=== PATIENT | male | born 1955 | race Caucasian/White ===

== ENCOUNTER 2017-11-23 14:22 | Inpatient (IN) ==
[~2017-11-23 14:22] MED LIST: Gadobutrol PF 15 MMOL/15 ML Vial (for RAD) IV.SIG ONE
--- NOTE | 2017-11-23 19:55 | ED ---
HPI General Chief complaint: Extremity Problem,Nontraumatic Stated complaint: dr sent/skin Time Seen by Provider: 11/23/17 19:45 Source: patient and family Mode of arrival: ambulatory Limitations: no limitations History of Present Illness HPI narrative: 62-year-old white male presents emergency department accompanied by his at the recommendation of Dr. Fisher his family physician through [facility]. He was advised to come to the ER so he can be evaluated by an orthopedic surgeon. Patient has had a complicated course of a right lower leg cellulitis and lymphedema. This started back in September of this year. He had been admitted for 11 days in [place]. He has been on multiple courses of antibiotics. Patient was seen in the office on Sunday and restarted on amoxicillin and Bactrim. His right lower extremity had become increasingly swollen, red particularly the posterior calf. Patient was sent for an ultrasound to rule out DVT or abscess. 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 Later in the day the cyst opened through the skin and started to drain. Dr. Fisher consult to Dr. Azar who verbally advised her to have the patient emergently seen by orthopedics. I have spoken with Dr. Fisher who stated that she has had made multiple attempts at getting him in to see an orthopedist this afternoon when she had gotten the information but was unsuccessful. She felt that there was no other way to have the patient evaluated but the sent him to the ER. The patient will be admitted and placed on IV antibiotics to circumvent a septic knee and have orthopedics consult. Patient here denies any fever chills. No nausea vomiting. No focal numbness, tingling or weakness. Patient does admit that the area behind his leg had gotten somewhat bigger and is now actually somewhat improved. Family is concerned that this was a similar presentation when his cellulitis had gotten out of control requiring IV antibiotics and admission. No exacerbating or alleviating factors. Complicated by Skaggs cyst versus loculated abscess. Pain is mild. Related Data Home Medications Medication Instructions Recorded Confirmed lisinopril 10 mg PO DAILY 11/23/17 11/23/17 metoprolol tartrate 100 mg PO DAILY 11/23/17 11/23/17 Previous Rx's Medication Instructions Recorded amoxicillin 500 mg PO TID #7 cap 11/28/17 hydrocodone-acetaminophen 1 tab PO Q4H PRN #18 tab 11/28/17 Allergies Allergy/AdvReac Type Severity Reaction Status Date / Time No Known Allergies Allergy Unverified 11/23/17 19:56 Review of Systems ROS Unobtainable All other systems reviewed negative except as stated in [facility] Surgical History Surgical History Hx of left knee surgery (Acute) Social History Social History Substance History: No History of Abuse Second Hand Smoke Exposure: No Smoking Status: Former smoker Tobacco Type: Cigarettes How Often Do You Have a Drink Containing Alcohol: Never Recent Travel in [facility] within the Last 8 Weeks: No Recent Out of Country Travel within the Last 8 Weeks: No Exam Narrative Exam Narrative: GENERAL: Well-developed, well-nourished in no apparent distress. Nontoxic appearing. HEAD: Normocephalic, atraumatic. EYES: Pupils equal round and reactive. Extraocular motions intact. No scleral icterus. No injection or drainage. ENT: Nose clear. Throat without erythema, tonsillar hypertrophy or exudate. Uvula midline. Airway patent. NECK: Trachea midline. Supple, nontender, moves head freely. No central bony tenderness or spasm. CARDIOVASCULAR: Regular rate and rhythm without murmurs, gallops, or rubs. RESPIRATORY: Clear to auscultation. Breath sounds equal bilaterally. No wheezes , rales, or rhonchi. GASTROINTESTINAL: Abdomen soft, non-tender, nondistended. No hepato-splenomegaly , or palpable masses. No guarding. EXTREMITIES: No clubbing, cyanosis. Examination of the right lower extremity reveals a thickened edema with erythema to the posterior calf down into the lower leg just above the ankle. There is a 8 x 8 cm soft area to the posterior calf with surrounding induration. There is a small central area which is open and draining a serosanguineous fluid. Patient reports this to be mildly tender. He has intact sensation with good distal pulses. Patient has no pain with palpation of the foot, ankle, knee or hip. He is able to ambulate freely. The skin is erythematous but not particularly warm. Skin does jillian. BACK: Nontender without deformity. No flank tenderness. NEUROLOGICAL: Awake, alert and oriented x 3 .Cranial nerves grossly intact. Motor and sensory grossly within normal limits. Normal speech. Course Hospital Course: The case has been discussed with Dr. Eldridge the floor health care doctor production zone leader. He has agreed to admit the patient today. He agrees with antibiotic coverage in consultation with orthopedics. We have discussed imaging of the knee. I have discussed the case with Lorena on-call for Dr. Penn. He has requested that we perform an MRI of his right knee, keep the patient n.p.o., and admit the patient and he will see the patient in consultation. He has discussed potentially tapping the need to see if this is a true communicating Skaggs cyst. Transition orders have been placed. Initial Documented Vital Signs Temperature 98.1 F 11/23/17 14:41 Pulse Rate 50 L 11/23/17 14:41 Respiratory Rate 16 11/23/17 14:41 Blood Pressure 178/79 H 11/23/17 14:41 Pulse Oximetry 95 11/23/17 14:41 Last Documented Vital Signs Temperature 97.7 F 11/28/17 16:00 Pulse Rate 79 11/28/17 16:00 Respiratory Rate 16 11/28/17 16:00 Blood Pressure 142/84 H 11/28/17 16:00 Pulse Oximetry 95 11/28/17 16:00 Medical Decision Making Differential Diagnosis Differential Diagnosis: Abscess, Skaggs's cyst, cellulitis, lymphedema, septic joint Lab Data Result diagrams: 11/26/17 04:20 11/28/17 03:15 Lab Results 11/23/17 11/23/17 11/23/17 Range/Units 21:00 21:00 21:00 WBC 6.0 (4.0-11.0) th/mm3 RBC 5.25 (4.50-5.90) mil/mm3 Hgb 15.2 (13.0-17.0) gm/dL Hct 45.0 (39.0-51.0) % MCV 85.6 (80.0-100.0) fL MCH 29.0 (27.0-34.0) pg MCHC 33.8 (32.0-36.0) % RDW 13.4 (11.6-17.2) % Plt Count 261 (150-450) th/mm3 MPV 8.2 (7.0-11.0) fL Neut % (Auto) 56.2 (16.0-70.0) % Lymph % (Auto) 28.8 (9.0-44.0) % Lawrence % (Auto) 8.1 H (0.0-8.0) % Eos % (Auto) 5.6 H (0.0-4.0) % Baso % (Auto) 1.3 (0.0-2.0) % Neut # (Auto) 3.4 (1.8-7.7) th/mm3 Lymph # (Auto) 1.7 (1.0-4.8) th/mm3 Lawrence # (Auto) 0.5 (0.0-0.9) th/mm3 Eos # (Auto) 0.3 (0.0-0.4) th/mm3 Baso # (Auto) 0.1 (0.0-0.2) th/mm3 WBC Differential . Differential Comment Auto diff final PT (9.8-11.6) sec INR Ratio APTT (24.3-30.1) sec Sodium 138 (136-145) meq/L Potassium 4.3 (3.5-5.1) meq/L Chloride 103 (98-107) meq/L Carbon Dioxide 25.4 (21.0-32.0) meq/L Anion Gap 10 (5-15) meq/L BUN 13 (7-18) mg/dL Creatinine 1.13 (0.60-1.30) mg/dL Estimated GFR 65 L (>89) mL/min Random Glucose 81 (74-106) mg/dL Lactic Acid 1.7 (0.4-2.0) mmol/L Calcium 9.7 (8.5-10.1) mg/dL Total Bilirubin 0.5 (0.2-1.0) mg/dL AST 15 (15-37) U/L ALT 14 (12-78) U/L Alkaline Phosphatase 86 (45-117) U/L Total Protein 8.2 (6.4-8.2) g/dL Albumin 3.9 (3.4-5.0) g/dL Vit D 1,25-Dihydroxy (18-64) pg/mL Vancomycin Trough (5.0-10.0) mcg/mL 11/24/17 11/24/17 11/25/17 Range/Units 07:22 07:22 05:38 WBC 6.4 6.5 (4.0-11.0) th/mm3 RBC 5.33 5.18 (4.50-5.90) mil/mm3 Hgb 15.5 14.9 (13.0-17.0) gm/dL Hct 45.8 45.0 (39.0-51.0) % MCV 86.0 86.9 (80.0-100.0) fL MCH 29.1 28.7 (27.0-34.0) pg MCHC 33.8 33.1 (32.0-36.0) % RDW 13.4 13.6 (11.6-17.2) % Plt Count 258 218 (150-450) th/mm3 MPV 8.6 8.5 (7.0-11.0) fL Neut % (Auto) 64.3 62.2 (16.0-70.0) % Lymph % (Auto) 21.5 20.0 (9.0-44.0) % Lawrence % (Auto) 7.5 10.6 H (0.0-8.0) % Eos % (Auto) 5.4 H 5.8 H (0.0-4.0) % Baso % (Auto) 1.3 1.4 (0.0-2.0) % Neut # (Auto) 4.1 4.0 (1.8-7.7) th/mm3 Lymph # (Auto) 1.4 1.3 (1.0-4.8) th/mm3 Lawrence # (Auto) 0.5 0.7 (0.0-0.9) th/mm3 Eos # (Auto) 0.3 0.4 (0.0-0.4) th/mm3 Baso # (Auto) 0.1 0.1 (0.0-0.2) th/mm3 WBC Differential . . Differential Comment Auto diff final Auto diff final PT (9.8-11.6) sec INR Ratio APTT (24.3-30.1) sec Sodium 140 (136-145) meq/L Potassium 4.1 (3.5-5.1) meq/L Chloride 102 (98-107) meq/L Carbon Dioxide 28.3 (21.0-32.0) meq/L Anion Gap 10 (5-15) meq/L BUN 12 (7-18) mg/dL Creatinine 1.05 (0.60-1.30) mg/dL Estimated GFR 71 L (>89) mL/min Random Glucose 90 (74-106) mg/dL Lactic Acid (0.4-2.0) mmol/L Calcium 9.7 (8.5-10.1) mg/dL Total Bilirubin (0.2-1.0) mg/dL AST (15-37) U/L ALT (12-78) U/L Alkaline Phosphatase (45-117) U/L Total Protein (6.4-8.2) g/dL Albumin (3.4-5.0) g/dL Vit D 1,25-Dihydroxy (18-64) pg/mL Vancomycin Trough (5.0-10.0) mcg/mL 11/25/17 11/25/17 11/26/17 Range/Units 05:38 23:20 04:20 WBC (4.0-11.0) th/mm3 RBC (4.50-5.90) mil/mm3 Hgb (13.0-17.0) gm/dL Hct (39.0-51.0) % MCV (80.0-100.0) fL MCH (27.0-34.0) pg MCHC (32.0-36.0) % RDW (11.6-17.2) % Plt Count (150-450) th/mm3 MPV (7.0-11.0) fL Neut % (Auto) (16.0-70.0) % Lymph % (Auto) (9.0-44.0) % Lawrence % (Auto) (0.0-8.0) % Eos % (Auto) (0.0-4.0) % Baso % (Auto) (0.0-2.0) % Neut # (Auto) (1.8-7.7) th/mm3 Lymph # (Auto) (1.0-4.8) th/mm3 Lawrence # (Auto) (0.0-0.9) th/mm3 Eos # (Auto) (0.0-0.4) th/mm3 Baso # (Auto) (0.0-0.2) th/mm3 WBC Differential Differential Comment PT 10.9 (9.8-11.6) sec INR 1.1 Ratio APTT 25.8 (24.3-30.1) sec Sodium 141 (136-145) meq/L Potassium 4.4 (3.5-5.1) meq/L Chloride 104 (98-107) meq/L Carbon Dioxide 30.3 (21.0-32.0) meq/L Anion Gap 7 (5-15) meq/L BUN 13 (7-18) mg/dL Creatinine 1.11 (0.60-1.30) mg/dL Estimated GFR 67 L (>89) mL/min Random Glucose 94 (74-106) mg/dL Lactic Acid (0.4-2.0) mmol/L Calcium 9.4 (8.5-10.1) mg/dL Total Bilirubin 0.5 (0.2-1.0) mg/dL AST 14 L (15-37) U/L ALT 12 (12-78) U/L Alkaline Phosphatase 73 (45-117) U/L Total Protein 7.2 D (6.4-8.2) g/dL Albumin 3.5 (3.4-5.0) g/dL Vit D 1,25-Dihydroxy 62 (18-64) pg/mL Vancomycin Trough (5.0-10.0) mcg/mL 11/26/17 11/26/17 11/26/17 Range/Units 04:20 04:20 21:51 WBC 14.4 H D (4.0-11.0) th/mm3 RBC 4.78 (4.50-5.90) mil/mm3 Hgb 13.8 (13.0-17.0) gm/dL Hct 40.7 (39.0-51.0) % MCV 85.1 (80.0-100.0) fL MCH 29.0 (27.0-34.0) pg MCHC 34.0 (32.0-36.0) % RDW 13.3 (11.6-17.2) % Plt Count 296 D (150-450) th/mm3 MPV 8.3 (7.0-11.0) fL Neut % (Auto) 88.7 H (16.0-70.0) % Lymph % (Auto) 5.9 L (9.0-44.0) % Lawrence % (Auto) 5.2 (0.0-8.0) % Eos % (Auto) 0.0 (0.0-4.0) % Baso % (Auto) 0.2 (0.0-2.0) % Neut # (Auto) 12.8 H (1.8-7.7) th/mm3 Lymph # (Auto) 0.9 L (1.0-4.8) th/mm3 Lawrence # (Auto) 0.8 (0.0-0.9) th/mm3 Eos # (Auto) 0.0 (0.0-0.4) th/mm3 Baso # (Auto) 0.0 (0.0-0.2) th/mm3 WBC Differential . Differential Comment Auto diff final PT (9.8-11.6) sec INR Ratio APTT (24.3-30.1) sec Sodium 139 (136-145) meq/L Potassium 4.4 (3.5-5.1) meq/L Chloride 102 (98-107) meq/L Carbon Dioxide 30.9 (21.0-32.0) meq/L Anion Gap 6 (5-15) meq/L BUN 13 (7-18) mg/dL Creatinine 0.94 (0.60-1.30) mg/dL Estimated GFR 81 L (>89) mL/min Random Glucose 134 H (74-106) mg/dL Lactic Acid (0.4-2.0) mmol/L Calcium 9.1 (8.5-10.1) mg/dL Total Bilirubin (0.2-1.0) mg/dL AST (15-37) U/L ALT (12-78) U/L Alkaline Phosphatase (45-117) U/L Total Protein (6.4-8.2) g/dL Albumin (3.4-5.0) g/dL Vit D 1,25-Dihydroxy (18-64) pg/mL Vancomycin Trough 18.7 H (5.0-10.0) mcg/mL 11/28/17 Range/Units 03:15 WBC (4.0-11.0) th/mm3 RBC (4.50-5.90) mil/mm3 Hgb (13.0-17.0) gm/dL Hct (39.0-51.0) % MCV (80.0-100.0) fL MCH (27.0-34.0) pg MCHC (32.0-36.0) % RDW (11.6-17.2) % Plt Count (150-450) th/mm3 MPV (7.0-11.0) fL Neut % (Auto) (16.0-70.0) % Lymph % (Auto) (9.0-44.0) % Lawrence % (Auto) (0.0-8.0) % Eos % (Auto) (0.0-4.0) % Baso % (Auto) (0.0-2.0) % Neut # (Auto) (1.8-7.7) th/mm3 Lymph # (Auto) (1.0-4.8) th/mm3 Lawrence # (Auto) (0.0-0.9) th/mm3 Eos # (Auto) (0.0-0.4) th/mm3 Baso # (Auto) (0.0-0.2) th/mm3 WBC Differential Differential Comment PT (9.8-11.6) sec INR Ratio APTT (24.3-30.1) sec Sodium (136-145) meq/L Potassium (3.5-5.1) meq/L Chloride (98-107) meq/L Carbon Dioxide (21.0-32.0) meq/L Anion Gap (5-15) meq/L BUN (7-18) mg/dL Creatinine 0.86 (0.60-1.30) mg/dL Estimated GFR Greater than 89 (>89) mL/min Random Glucose (74-106) mg/dL Lactic Acid (0.4-2.0) mmol/L Calcium (8.5-10.1) mg/dL Total Bilirubin (0.2-1.0) mg/dL AST (15-37) U/L ALT (12-78) U/L Alkaline Phosphatase (45-117) U/L Total Protein (6.4-8.2) g/dL Albumin (3.4-5.0) g/dL Vit D 1,25-Dihydroxy (18-64) pg/mL Vancomycin Trough (5.0-10.0) mcg/mL Imaging Data Radiologist's impression: Chest X-Ray 11/23/17 00:00 CONCLUSION: No acute cardiopulmonary disease identified. Knee MRI 11/23/17 21:17 CONCLUSION: 1. Large crescent-shaped fluid collection in the posterior superficial soft tissues with surrounding enhancement indicating infection and abscess in the proper clinical setting. No evidence of osteomyelitis. 2. Medial meniscus tear with displaced fragment in the intercondylar notch. 3. 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 4. Small joint effusion and small Skaggs cyst. Discharge Plan Discharge Disposition Patient Disposition: 01 Discharge Home Discharge Condition Condition: Stable Discharge Order Discharge Orders: Discharge Order (Routine); Ordered 11/28/17 Ordered By: Felix Piedra Discharge Details Anticipated Discharge Date: 11/28/17 Discharge Comment: dc pt home today with hhc/wound care after seen by Infectious disease. Physicians Team ED Provider: Azalia Roberts ED Midlevel Provider: Dontae Mustafa Primary Care Provider: Mirta Fisher Attending Provider: Salo Eldridge Other Providers: Fly Penn ; Nathalie Hi ; [facility] ; Chip Ferreira Status ED Status: Left Department Discharge Information Discharge Date/Time: 11/24/17 00:30
[2017-11-23] MEDS ORDERED: Sod Chloride 0.9% Inj 1,000 ML IV.SIG ONE (19:56)
[2017-11-23] MEDS ORDERED: Vancomycin Inj 1 GM/200 ML PIGGYBACK IV.SIG SCH (20:00)
[2017-11-23 21:34] LABS: Baso # (Auto) 0.1 th/mm3 (0.0-0.2); Baso % (Auto) 1.3 % (0.0-2.0); Eos # (Auto) 0.3 th/mm3 (0.0-0.4); Eos % (Auto) 5.6 % (0.0-4.0); Hemoglobin 15.2 gm/dL (13.0-17.0); Lymph # (Auto) 1.7 th/mm3 (1.0-4.8); Lymph % (Auto) 28.8 % (9.0-44.0); Mean Corpuscular HGB Conc 33.8 % (32.0-36.0); Mean Corpuscular Volume 85.6 fL (80.0-100.0); Mean Platelet Volume 8.2 fL (7.0-11.0); Mono # (Auto) 0.5 th/mm3 (0.0-0.9); Mono % (Auto) 8.1 % (0.0-8.0); Neut # (Auto) 3.4 th/mm3 (1.8-7.7); Neut % (Auto) 56.2 % (16.0-70.0); Platelet Count 261 th/mm3 (150-450); Red Blood Count 5.25 mil/mm3 (4.50-5.90); Red Cell Distribution Width 13.4 % (11.6-17.2)
[2017-11-23 22:01] LABS: Albumin 3.9 g/dL (3.4-5.0); Anion Gap 10 meq/L (5-15); Aspartate Aminotransferase 15 U/L (15-37); Blood Urea Nitrogen 13 mg/dL (7-18); Calcium 9.7 mg/dL (8.5-10.1); Carbon Dioxide 25.4 meq/L (21.0-32.0); Chloride 103 meq/L (98-107); Glomerular Filtration Rate 65 mL/min (>89); Glucose,Random 81 mg/dL (74-106); Potassium 4.3 meq/L (3.5-5.1); Sodium 138 meq/L (136-145)
[2017-11-23 22:03] LABS: Alanine Aminotransferase 14 U/L (12-78); Alkaline Phosphatase 86 U/L (45-117); Total Protein 8.2 g/dL (6.4-8.2)
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
[2017-11-23] MEDS ORDERED: Temazepam 15 MG Capsule PO PRN (22:47)
[2017-11-23] MEDS ORDERED: HYDROmorphone PF Inj 2 MG/ML Vial IV.PUSH PRN (22:55)
--- NOTE | 2017-11-23 23:25 | MR ---
EXAM DATE: 11/23/2017 11:16 PM EDT AGE/SEX: 62 years / Male INDICATIONS: Abscess. Pain and swelling from bite from about three months agol CLINICAL DATA: This is the patient's initial encounter. Patient reports that signs and symptoms have been present for 3 months and indicates a pain score of 8/10. MEDICAL/SURGICAL HISTORY: Hypertension. . Left knee sx. COMPARISON: No prior exams available for comparison. TECHNIQUE: Multiplanar, multisequence MRI examination was performed with contrast and after the intr avenous administration of 14 ml Gadavist (gadobutrol) contrast as a single exam dose. FINDINGS: Cruciate Ligaments: ACL and PCL are intact. Menisci: Moderate-sized horizontal tear of the posterior horn and body of the medial meniscus. Atten uation of the medial meniscus body along with a fragment displaced into the intercondylar notch. Late ral meniscus is intact. Collateral Ligaments: MCL and LCL complexes are intact. Marrow/Cartilage: Small tricompartmental osteophytes. Mild diffuse articular cartilage thinning and heterogeneity at the weightbearing surfaces of the medial compartment. Mild diffuse patellar articula r cartilage thinning. Other: Thick walled peripherally enhancing fluid collection in the posterior superficial soft tissue s with surrounding edema and enhancement. The collection measures 11.3 x 1.5 cm in axial dimensions a nd approximately 11 cm in craniocaudal dimension. Finding suggest abscess in the proper clinical sett ing. Small joint effusion. Extensor mechanism intact. Small Skaggs cyst. CONCLUSION: 1. Large crescent-shaped fluid collection in the posterior superficial soft tissues with surrounding enhancement indicating infection and abscess in the proper clinical setting. No evidence of osteomye litis. 2. Medial meniscus tear with displaced fragment in the intercondylar notch. 3. Osteoarthritic findings with mild medial compartment and patellofemoral compartment chondromalaci a. 4. Small joint effusion and small Skaggs cyst. Electronically signed by: Anand Bañuelos MD 11/23/2017 11:24 PM EDT
--- NOTE | 2017-11-23 23:47 | XR ---
EXAM DATE: 11/23/2017 11:40 PM EDT AGE/SEX: 62 years / Male INDICATIONS: . Short of breath and productive cough. CLINICAL DATA: This is the patient's initial encounter. Patient reports that signs and symptoms have been present for 1 day and indicates a pain score of 0/10. MEDICAL/SURGICAL HISTORY: Hypertension. None. COMPARISON: No prior exams available for comparison. FINDINGS: PA and lateral views of the chest. Multiple old healed right-sided rib fractures. The lung s are clear. Cardiomediastinal silhouette within normal limits. No evidence of pleural effusion or pneumothorax. CONCLUSION: No acute cardiopulmonary disease identified. Electronically signed by: Anand Bañuelos MD 11/23/2017 11:45 PM EDT
[2017-11-24] MEDS: Potassium Chloride Inj 10 MEQ in Sodium Chloride 0.45 % Inj 1,000 ML IV.CONT SCH ×2 (01:35→16:14)
[2017-11-24] MEDS ORDERED: Vancomycin Inj 1,000 MG in Sodium Chlor 0.9% Inj 250 ML IV.SIG SCH (08:00)
[2017-11-24] MEDS ORDERED: Vancomycin Inj 1 GM/200 ML PIGGYBACK IV.SIG SCH (08:00)
[2017-11-24] MEDS: Senna/Docusate Sodium 8.6/50 MG Tablet PO SCH ×2 (09:00→21:43)
[2017-11-24 09:03] LABS: Baso # (Auto) 0.1 th/mm3 (0.0-0.2); Baso % (Auto) 1.3 % (0.0-2.0); Eos # (Auto) 0.3 th/mm3 (0.0-0.4); Eos % (Auto) 5.4 % (0.0-4.0); Hematocrit 45.8 % (39.0-51.0); Hemoglobin 15.5 gm/dL (13.0-17.0); Lymph # (Auto) 1.4 th/mm3 (1.0-4.8); Lymph % (Auto) 21.5 % (9.0-44.0); Mean Corpuscular HGB Conc 33.8 % (32.0-36.0); Mean Corpuscular Hemoglobin 29.1 pg (27.0-34.0); Mean Platelet Volume 8.6 fL (7.0-11.0); Mono # (Auto) 0.5 th/mm3 (0.0-0.9); Mono % (Auto) 7.5 % (0.0-8.0); Neut # (Auto) 4.1 th/mm3 (1.8-7.7); Neut % (Auto) 64.3 % (16.0-70.0); Platelet Count 258 th/mm3 (150-450); Red Blood Count 5.33 mil/mm3 (4.50-5.90); Red Cell Distribution Width 13.4 % (11.6-17.2); White Blood Count 6.4 th/mm3 (4.0-11.0)
--- NOTE | 2017-11-24 09:12 | MB ---
cc: Fly Penn MD DATE: 11/24/2017 REASON FOR CONSULTATION: Right posterior calf abscess. CONSULTING PHYSICIAN: Dr. Salo Eldridge. HISTORY OF PRESENT ILLNESS: Hai is a 62-year-old male who initially began having problems with his right calf approximately 08/18/2017. He states that he was bit by an insect while in [place]. He developed an infection. He was admitted at [facility] in [place] for 11 days for antibiotic treatment. He subsequently has returned back to [place]. He has developed drainage over the past 3 days. He had significant swelling and redness of the posterior calf. There was fluctuance and tightness noted. He has had purulent drainage for 3 days. He continues to have some pain. The pain has improved since the drainage started. Subsequent MRI revealed an abscess in the posterior calf. He also has meniscal tear and Skaggs's cyst on MRI. The patient was admitted for treatment of this injury. PAST MEDICAL HISTORY: Hypertension, cardiomegaly, and history of ventral hernia. PAST SURGICAL HISTORY: Left knee ligamentous repair. ALLERGIES: NO KNOWN DRUG ALLERGIES. MEDICATIONS: 1. Metoprolol. 2. Lisinopril. SOCIAL HISTORY: The patient is . He is originally from [place]. He quit smoking 4 years ago. He denies alcohol use. He denies drug use. FAMILY HISTORY: Positive for diabetes in his mother and cancer in his father. REVIEW OF SYSTEMS: The patient denies fevers, chills, weight loss, headache, visual changes, hearing loss, chest pain, palpitations, shortness of breath, nausea, vomiting, urinary changes, diarrhea, bowel changes, neck pain, back pain, skin rashes, weakness, numbness of extremities, anxiety or depression. He complains of right knee pain and swelling. LABORATORY DATA: The patient has a white blood cell count of 6.0, platelet count of 261, hematocrit of 45. Potassium is 4.3. IMAGING STUDIES: MRI of right leg was reviewed. The patient has a fluid collection along the posterior soft tissues of the calf. No fractures are noted. PHYSICAL EXAMINATION: GENERAL: The patient is a well-developed, well-nourished, 62-year-old male. He is moderately overweight. He is in no acute distress. VITAL SIGNS: Temperature is 97.6, pulse 51, respirations 20, blood pressure 153/83, O2 saturation 96% on room air. HEENT: Head: The patient is normocephalic. Pupils are equal. NECK: Soft, nontender. The trachea is in the midline. ABDOMEN: Soft, nontender, and nondistended. EXTREMITIES: Examination of the bilateral upper extremities reveals no pain with shoulder, elbow or wrist motion. He has intact sensation in all fingers and has good cap refill in all fingers. Skin is intact. Radial pulse is palpable. Examination of the left leg reveals no significant pain with hip, knee or ankle motion. Skin is intact. Dorsalis pedis pulse is palpable. Examination of the right leg reveals minimal pain with gentle hip, knee or ankle motion. He has swelling and erythema of the right calf. There is an approximately 8 mm draining wound on the posterior superior calf. There is purulent drainage present. There appears to be some fluctuance around this region. He has intact sensation to the right foot. Dorsalis pedis pulse is palpable. IMPRESSION: Right calf abscess. PLAN: Treatment options were discussed with the patient. At this point, he has had improvement since the wound started draining. He has been on antibiotics. MRI still reveals a moderate fluid collection present. He would likely benefit from surgical irrigation and debridement of this wound. I will plan on surgery tomorrow unless he has had significant clinical improvement. Given that he has been dealing with this infection for approximately 3 months, surgery will likely be necessary. The patient is in agreement with this plan. All questions were answered. A mid-level provider in my office, nurse practitioner or PA, may see this patient on a follow-up basis and continue to implement the objective of this plan including: Starting or adjusting medications, injections of muscle, tendon, bursa or joints, cast application, orthotic or brace application, physical therapy, further radiographic studies including x-ray, MRI, CT, ultrasounds or bone scan, vascular studies, neurologic studies, or other specialist consultations, and proceeding with surgical management as appropriate. MD JORGE Bonilla/RIGO , 08:53 AM , 09:11 AM
[2017-11-24 09:27] LABS: Calcium 9.7 mg/dL (8.5-10.1); Carbon Dioxide 28.3 meq/L (21.0-32.0); Potassium 4.1 meq/L (3.5-5.1)
--- NOTE | 2017-11-24 15:14 | P.PNIM ---
Subjective Interval history: No new complaints Pain is fairly well controlled Afebrile Physical Exam Vital signs: Vital Signs 11/24/17 00:00 11/24/17 04:00 11/24/17 08:00 Temperature 97.1 F L 97.1 F L 97.6 F Pulse Rate 54 L 47 L 51 L Respiratory Rate 18 18 20 Blood Pressure 147/89 H 164/94 H 153/83 H Pulse Oximetry 96 97 96 11/24/17 12:00 Temperature 97.6 F Pulse Rate 50 L Respiratory Rate 20 Blood Pressure 172/89 H Pulse Oximetry 97 Intake & Output 11/23/17 11/24/17 11/24/17 18:59 06:59 18:59 Intake Total 250 / 250 Balance 250 / 250 Weight 136.078 kg 135.6 kg Intake: IV 250 / 250 Vancomycin Inj 1,000 MG In NS 250 / 250 Inj 250 ML @ 250 mls/hr IV.SIG Q12H ERON Rx#:[id number] Other: # Voids 1 Weight On Admission 135.6 kg Narrative: GENERAL: NAD, AAOx3 CARDIO: Regular RESP: CTA bilaterally. No accessory muscle use. ABD: +BS, soft, non-tender, nondistended. EXT: Swelling and erythema of the right calf with approximately an 8 mm draining wound on the posterior superior calf. There is purulent drainage noted and some fluctuance in the area of the right calf wound. Results - Labs CBC & Chem 7: 11/25/17 05:38 11/25/17 05:38 Laboratory Results - last 24 hr 11/23/17 11/23/17 11/23/17 21:00 21:00 21:00 WBC 6.0 RBC 5.25 Hgb 15.2 Hct 45.0 MCV 85.6 MCH 29.0 MCHC 33.8 RDW 13.4 Plt Count 261 MPV 8.2 Neut % (Auto) 56.2 Lymph % (Auto) 28.8 [place] % (Auto) 8.1 H Eos % (Auto) 5.6 H Baso % (Auto) 1.3 Neut # (Auto) 3.4 Lymph # (Auto) 1.7 [place] # (Auto) 0.5 Eos # (Auto) 0.3 Baso # (Auto) 0.1 WBC Differential . Differential Comment Auto diff final Sodium 138 Potassium 4.3 Chloride 103 Carbon Dioxide 25.4 Anion Gap 10 BUN 13 Creatinine 1.13 Estimated GFR 65 L Random Glucose 81 Lactic Acid 1.7 Calcium 9.7 Total Bilirubin 0.5 AST 15 ALT 14 Alkaline Phosphatase 86 Total Protein 8.2 Albumin 3.9 11/24/17 11/24/17 07:22 07:22 WBC 6.4 RBC 5.33 Hgb 15.5 Hct 45.8 MCV 86.0 MCH 29.1 MCHC 33.8 RDW 13.4 Plt Count 258 MPV 8.6 Neut % (Auto) 64.3 Lymph % (Auto) 21.5 [place] % (Auto) 7.5 Eos % (Auto) 5.4 H Baso % (Auto) 1.3 Neut # (Auto) 4.1 Lymph # (Auto) 1.4 [place] # (Auto) 0.5 Eos # (Auto) 0.3 Baso # (Auto) 0.1 WBC Differential . Differential Comment Auto diff final Sodium 140 Potassium 4.1 Chloride 102 Carbon Dioxide 28.3 Anion Gap 10 BUN 12 Creatinine 1.05 Estimated GFR 71 L Random Glucose 90 Lactic Acid Calcium 9.7 Total Bilirubin AST ALT Alkaline Phosphatase Total Protein Albumin Microbiology 11/23/17 22:58 Blood - Peripheral Aerobic Blood Culture - Preliminary No growth in 1 day 11/23/17 22:58 Blood - Peripheral Anaerobic Blood Culture - Preliminary No growth in 1 day 11/23/17 23:14 Blood - Peripheral Aerobic Blood Culture - Preliminary No growth in 1 day 11/23/17 23:14 Blood - Peripheral Anaerobic Blood Culture - Preliminary No growth in 1 day 11/23/17 23:44 Wound - Leg Gram Stain - Final - Imaging Impressions Chest X-Ray 11/23/17 00:00 CONCLUSION: No acute cardiopulmonary disease identified. Knee MRI 11/23/17 21:17 CONCLUSION: 1. Large crescent-shaped fluid collection in the posterior superficial soft tissues with surrounding enhancement indicating infection and abscess in the proper clinical setting. No evidence of osteomyelitis. 2. Medial meniscus tear with displaced fragment in the intercondylar notch. 3. 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 4. Small joint effusion and small Skaggs cyst. Assessment and Plan - Assessment (1) Cellulitis Code(s): L03.90 - Cellulitis, unspecified Status: Acute Plan: Right calf cellulitis and abscess - Patient is a 62 y/o male with hypertension who was sent to the ED for evaluation of ongoing right lower extremity cellulitis which apparently began in August 2017. Pt reports that he was bit by an insect behind his right knee. Patient was previously admitted in [place], [place] for 11 days and treated with multiple antibiotics. Pt reports that he was then discharged on amoxicillin. Pt then drove back to [place]. - He reported that his right calf remained swollen and this had increased swelling at his right calf for the last week. - Patient was seen at Dr. Fisher's office the Sunday prior to admission and started on oral amoxicillin and Bactrim. However, patient failed to improve and had worsening erythema of his right lower extremity particular at the posterior aspect. Patient underwent ultrasound (outpatient, 11/21/17) showing a 15 cm septated Skaggs's cyst. Patient reports that the cyst open spontaneously and drained a large amount of dark, blood tinged fluid. - Knee MRI (11/23/17) 1. Large crescent-shaped fluid collection in the posterior superficial soft tissues with surrounding enhancement indicating infection and abscess in the proper clinical setting. No evidence of osteomyelitis. 2. Medial meniscus tear with displaced fragment in the intercondylar notch. 3. 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 4. Small joint effusion and small Skaggs cyst. - Appreciate consult from orthopedic surgery - Pt planned for surgical intervention on 11/25/17 - Blood cultures (11/23) with NGTD - Wound culture (11/23) is pending - Pain control PRN - Pt was started on Vancomycin at admission and this is being continued with pharmacy to dose. - SCD LLE for DVT prophylaxis - Supportive care - Attending Attestation Patient examined. Assessment and plan formulated with Nirmala Lomeli PA-C. I agree with the above. (1) Cellulitis Qualifiers: Site of cellulitis of extremity: lower extremity Laterality: right
[2017-11-24] MEDS ORDERED: Vancomycin Consult Pharmacy 1 EACH OTHER SCH (17:00)
[2017-11-24] MEDS: Vancomycin Inj 2,000 MG in Sodium Chlor 0.9% Inj 500 ML IV.SIG SCH (21:43)
--- NOTE | 2017-11-25 06:57 | P.PNOP ---
Subjective Interval history: Hai is awake and alert. Continues to have significant drainage from his right calf. Physical Exam Vital signs: Vital Signs 11/24/17 08:00 11/24/17 12:00 11/24/17 16:00 Temperature 97.6 F 97.6 F 97.9 F Pulse Rate 51 L 50 L 54 L Respiratory Rate 20 20 20 Blood Pressure 153/83 H 172/89 H 168/82 H Pulse Oximetry 96 97 97 11/24/17 20:00 11/25/17 00:00 11/25/17 04:00 Temperature 98.6 F 98.3 F 97.6 F Pulse Rate 57 L 52 L 59 L Respiratory Rate 20 18 18 Blood Pressure 151/73 H 131/72 145/76 H Pulse Oximetry 93 L 97 97 Intake & Output 11/24/17 11/24/17 11/25/17 06:59 18:59 06:59 Intake Total 2975 / 2975 720 / 720 Balance 2975 / 2975 720 / 720 Weight 135.6 kg 135.1 kg Intake: IV 2255 / 2255 KCl Inj 10 MEQ In 1/ Normal 2004 / 2004 Saline Inj 1,000 ML @ 84 mls/hr IV.CONT .[id number] ERON Rx#: [id number] Vancomycin Inj 1,000 MG In NS 250 / 250 Inj 250 ML @ 250 mls/hr IV.SIG Q12H ERON Rx#:[id number] Oral 720 / 720 720 / 720 Other: # Voids 1 6 2 # Bowel Movements 1 Weight On Admission 135.6 kg Narrative: Examination of right calf reveals a 6 cm x 6 mm open wound. There is purulent drainage present. There appears to be fluctuance around the superficial superior calf region. Calf is soft and nontender. He has no pain with the range of motion. No joint effusion is palpable. Results - Labs CBC & Chem 7: 11/24/17 07:22 11/24/17 07:22 Laboratory Results - last 24 hr 11/24/17 11/24/17 07:22 07:22 WBC 6.4 RBC 5.33 Hgb 15.5 Hct 45.8 MCV 86.0 MCH 29.1 MCHC 33.8 RDW 13.4 Plt Count 258 MPV 8.6 Neut % (Auto) 64.3 Lymph % (Auto) 21.5 [place] % (Auto) 7.5 Eos % (Auto) 5.4 H Baso % (Auto) 1.3 Neut # (Auto) 4.1 Lymph # (Auto) 1.4 [place] # (Auto) 0.5 Eos # (Auto) 0.3 Baso # (Auto) 0.1 WBC Differential . Differential Comment Auto diff final Sodium 140 Potassium 4.1 Chloride 102 Carbon Dioxide 28.3 Anion Gap 10 BUN 12 Creatinine 1.05 Estimated GFR 71 L Random Glucose 90 Calcium 9.7 Microbiology 11/23/17 22:58 Blood - Peripheral Aerobic Blood Culture - Preliminary No growth in 1 day 11/23/17 22:58 Blood - Peripheral Anaerobic Blood Culture - Preliminary No growth in 1 day 11/23/17 23:14 Blood - Peripheral Aerobic Blood Culture - Preliminary No growth in 1 day 11/23/17 23:14 Blood - Peripheral Anaerobic Blood Culture - Preliminary No growth in 1 day 11/23/17 23:44 Wound - Leg Gram Stain - Final Assessment and Plan - Assessment and Plan Hai continues to have purulent drainage from a right calf abscess. At this point I would recommend surgical irrigation debridement of the abscess. Risk and benefits of surgery were discussed and consent was given. I will plan on surgery today. All questions were answered.
[2017-11-25 07:21] LABS: Baso # (Auto) 0.1 th/mm3 (0.0-0.2); Baso % (Auto) 1.4 % (0.0-2.0); Eos # (Auto) 0.4 th/mm3 (0.0-0.4); Eos % (Auto) 5.8 % (0.0-4.0); Hemoglobin 14.9 gm/dL (13.0-17.0); Lymph # (Auto) 1.3 th/mm3 (1.0-4.8); Mean Corpuscular HGB Conc 33.1 % (32.0-36.0); Mean Corpuscular Hemoglobin 28.7 pg (27.0-34.0); Mean Corpuscular Volume 86.9 fL (80.0-100.0); Mean Platelet Volume 8.5 fL (7.0-11.0); Mono # (Auto) 0.7 th/mm3 (0.0-0.9); Mono % (Auto) 10.6 % (0.0-8.0); Neut % (Auto) 62.2 % (16.0-70.0); Platelet Count 218 th/mm3 (150-450); Red Blood Count 5.18 mil/mm3 (4.50-5.90); Red Cell Distribution Width 13.6 % (11.6-17.2); White Blood Count 6.5 th/mm3 (4.0-11.0)
[2017-11-25 07:34] LABS: Albumin 3.5 g/dL (3.4-5.0); Anion Gap 7 meq/L (5-15); Aspartate Aminotransferase 14 U/L (15-37); Blood Urea Nitrogen 13 mg/dL (7-18); Calcium 9.4 mg/dL (8.5-10.1); Carbon Dioxide 30.3 meq/L (21.0-32.0); Chloride 104 meq/L (98-107); Glomerular Filtration Rate 67 mL/min (>89); Glucose,Random 94 mg/dL (74-106); Potassium 4.4 meq/L (3.5-5.1); Sodium 141 meq/L (136-145)
[2017-11-25 07:35] LABS: Alanine Aminotransferase 12 U/L (12-78)
[2017-11-25 07:37] LABS: Alkaline Phosphatase 73 U/L (45-117); Total Protein 7.2 g/dL (6.4-8.2)
[2017-11-25] MEDS: Senna/Docusate Sodium 8.6/50 MG Tablet PO SCH ×2 (08:10→22:08)
[2017-11-25] MEDS: Vancomycin Inj 2,000 MG in Sodium Chlor 0.9% Inj 500 ML IV.SIG SCH ×2 (09:10→22:11)
[2017-11-25] MEDS ORDERED: Post-op Orders (for Pharmacy) OTHER STA (09:16)
--- NOTE | 2017-11-25 09:25 | P.OP ---
- Preoperative Diagnosis (1) Abscess of right lower leg Date of procedure: 11/25/17 Procedure: Irrigation and debridement of right calf abscess Anesthesia: GETA Surgeon: Fly Reyes MD Foreman/Project Manager: DIVINE Nichols PA-C The surgical procedure was assisted by my physician culture media laboratory assistant. My P.A. presence was necessary throughout this case for the manipulation and positioning of the surgical extremity. My P.A. was assisting me throughout the duration of this procedure. The skill set of a physician culture media laboratory assistant was medically necessary to complete this procedure. During the surgical case the manager surgical was working at the back table and the physician culture media laboratory assistant was directly assisting me. Operation and Findings: Hai was seen and evaluated preoperatively. Patient was noted to have a relatively large abscess of the posterior calf on MRI. Informed consent was obtained preoperatively and operative site was marked. He is brought the operating room. He was given IV sedation and general anesthesia. He was placed in lateral decubitus position. Right leg was prepped with alcohol followed Hibiclens and draped in the usual sterile fashion. Timeout procedure was performed. Procedure began with a 3 inch incision over the abscess area. The sinus tract was included in the incision. Sinus tract was excised. There is a large pocket of cloudy fluid in the posterior calf. There were multiple loculations present. The loculations were manually debrided. Curettes and rongeurs were used to perform excisional debridement. Skin, subcutaneous tissue, and fascia were debrided sharply. After thorough debridement, the wound was thoroughly irrigated with sterile saline. A drain was now placed deep. Incision was then closed with 3-0 PDS and 3-0 nylon. Sterile dressings were applied. Patient was awakened and transferred to recovery room in stable condition.
[2017-11-25] MEDS ORDERED: fentaNYL Citrate Inj 100 MCG/2 ML Ampul ONE (10:03)
[2017-11-25] MEDS ORDERED: *morphine SULFATE 4 MG/ML PERIprocedure ONLY ONE ×2 (10:06→15:01)
[2017-11-25] MEDS ORDERED: Lidocaine PF 1% Inj 5 ML Syringe INFILTRATN ONE ×2 (12:00)
[2017-11-25] MEDS ORDERED: Succinylcholine Inj 100 MG/5 ML Syringe IV.PUSH ONE ×2 (12:00)
[2017-11-25] MEDS ORDERED: Phenylephrine/NS 1000 MCG/10ML Syringe IV.PUSH ONE (12:00)
[2017-11-25] MEDS ORDERED: Glycopyrrolate Inj 1 MG/5 ML Syringe IV.PUSH ONE (12:00)
--- NOTE | 2017-11-25 12:48 | P.PNIM ---
Subjective Interval history: Pt examined in room after return from PACU. Physical Exam Vital signs: Vital Signs 11/25/17 11:00 Temperature Pulse Rate 73 Respiratory Rate 18 Blood Pressure 118/59 L Pulse Oximetry 95 Narrative: GENERAL: NAD, AAOx3 HEENT: nasal packing CARDIO: Regular RESP: CTA bilaterally. No accessory muscle use. ABD: +BS, soft, non-tender, nondistended. EXT: right calf bandaged, c/d/i Results - Labs CBC & Chem 7: 11/25/17 05:38 11/25/17 05:38 Laboratory Results - last 24 hr 11/23/17 23:44 Wound - Leg Gram Stain - Final 11/23/17 23:44 Wound - Leg Wound Culture - Preliminary 11/23/17 22:58 Blood - Peripheral Aerobic Blood Culture - Preliminary No growth in 2 days 11/23/17 22:58 Blood - Peripheral Anaerobic Blood Culture - Preliminary No growth in 2 days 11/23/17 23:14 Blood - Peripheral Aerobic Blood Culture - Preliminary No growth in 2 days 11/23/17 23:14 Blood - Peripheral Anaerobic Blood Culture - Preliminary No growth in 2 days - Imaging Chest X-Ray 11/23/17 00:00 CONCLUSION: No acute cardiopulmonary disease identified. Knee MRI 11/23/17 21:17 CONCLUSION: 1. Large crescent-shaped fluid collection in the posterior superficial soft tissues with surrounding enhancement indicating infection and abscess in the proper clinical setting. No evidence of osteomyelitis. 2. Medial meniscus tear with displaced fragment in the intercondylar notch. 3. 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 4. Small joint effusion and small Skagsg cyst. Assessment and Plan - Assessment (1) Cellulitis Code(s): L03.90 - Cellulitis, unspecified Status: Acute Plan: Right calf cellulitis and abscess - comgmt with Orthopedis, Dr. Penn - Patient is a 62 y/o male with hypertension who was sent to the ED for evaluation of ongoing right lower extremity cellulitis which apparently began in August 2017. Pt reports that he was bit by an insect behind his right knee. Patient was previously admitted in [place], [place] for 11 days and treated with multiple antibiotics. Pt reports that he was then discharged on amoxicillin. Pt then drove back to [place]. - He reported that his right calf remained swollen and this had increased swelling at his right calf for the last week. - Patient was seen at Dr. Fisher's office the Sunday prior to admission and started on oral amoxicillin and Bactrim. However, patient failed to improve and had worsening erythema of his right lower extremity particular at the posterior aspect. Patient underwent ultrasound (outpatient, 11/21/17) showing a 15 cm septated Skaggs's cyst. Patient reports that the cyst open spontaneously and drained a large amount of dark, blood tinged fluid. - Knee MRI (11/23/17) 1. Large crescent-shaped fluid collection in the posterior superficial soft tissues with surrounding enhancement indicating infection and abscess in the proper clinical setting. No evidence of osteomyelitis. 2. Medial meniscus tear with displaced fragment in the intercondylar notch. 3. 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 4. Small joint effusion and small Skaggs cyst. - Blood cultures (11/23) with NGTD - Wound culture (11/23) is pending - (11/25/17) Pt underwent irrigation and debridement of right calf abscess with Dr. Fly Penn - Pain control PRN - Vancomycin (11/23 - present) - SCD LLE for DVT prophylaxis - Supportive care Epistaxis - Pt taken to the OR by Dr. Ferreira - packing per ENT - obtain coags (1) Cellulitis Qualifiers: Site of cellulitis of extremity: lower extremity Laterality: right
[2017-11-25] MEDS ORDERED: Lidocaine 1%/Epinephrine 1:100,000 Inj 20 ML Vial ONE (13:34)
[2017-11-25] MEDS ORDERED: Thrombin Topical Soln 5,000 UNIT Vial TOPICAL ONE (13:48)
--- NOTE | 2017-11-25 16:07 | ECG ---
Date Performed: 11/24/2017 Time Performed: 20:18:25 PTAGE: 62 years EKG: SINUS BRADYCARDIA BORDERLINE ECG NO PREVIOUS TRACING DOCTOR: Felix Cole Interpretating Date/Time 11/25/2017 16:06:26
[2017-11-25] MEDS: Potassium Chloride Inj 10 MEQ in Sodium Chloride 0.45 % Inj 1,000 ML IV.CONT SCH ×2 (16:57→16:58)
[2017-11-26 00:01] LABS: Activated Partial Thrombo Time 25.8 sec (24.3-30.1); INR 1.1 Ratio; Prothrombin Time 10.9 sec (9.8-11.6)
[2017-11-26] MEDS: Potassium Chloride Inj 10 MEQ in Sodium Chloride 0.45 % Inj 1,000 ML IV.CONT SCH ×2 (01:37→22:14)
[2017-11-26 05:36] LABS: Baso % (Auto) 0.2 % (0.0-2.0); Hematocrit 40.7 % (39.0-51.0); Hemoglobin 13.8 gm/dL (13.0-17.0); Lymph # (Auto) 0.9 th/mm3 (1.0-4.8); Lymph % (Auto) 5.9 % (9.0-44.0); Mean Corpuscular Volume 85.1 fL (80.0-100.0); Mean Platelet Volume 8.3 fL (7.0-11.0); Mono # (Auto) 0.8 th/mm3 (0.0-0.9); Mono % (Auto) 5.2 % (0.0-8.0); Neut # (Auto) 12.8 th/mm3 (1.8-7.7); Neut % (Auto) 88.7 % (16.0-70.0); Platelet Count 296 th/mm3 (150-450); Red Blood Count 4.78 mil/mm3 (4.50-5.90); Red Cell Distribution Width 13.3 % (11.6-17.2); White Blood Count 14.4 th/mm3 (4.0-11.0)
[2017-11-26 05:59] LABS: Calcium 9.1 mg/dL (8.5-10.1); Carbon Dioxide 30.9 meq/L (21.0-32.0); Potassium 4.4 meq/L (3.5-5.1)
[2017-11-26] MEDS ORDERED: Pharmacy Ordered Lab Info OTHER SCH (08:45)
[2017-11-26] MEDS: Vancomycin Inj 2,000 MG in Sodium Chlor 0.9% Inj 500 ML IV.SIG SCH ×2 (09:35→21:58)
[2017-11-26] MEDS: Senna/Docusate Sodium 8.6/50 MG Tablet PO SCH ×2 (09:36→21:58)
--- NOTE | 2017-11-26 09:56 | P.PNIM ---
Subjective Interval history: no current bleeding nares packed. Physical Exam Vital signs: Vital Signs 11/25/17 10:00 11/25/17 10:15 11/25/17 10:30 Temperature Pulse Rate 66 59 L 53 L Respiratory Rate 17 17 17 Blood Pressure 127/63 131/66 128/67 Pulse Oximetry 95 97 98 11/25/17 10:45 11/25/17 11:00 11/25/17 11:15 Temperature Pulse Rate 58 L 56 L 60 Respiratory Rate 17 17 17 Blood Pressure 128/64 118/59 L 134/65 Pulse Oximetry 94 L 95 93 L 11/25/17 11:30 11/25/17 12:00 11/25/17 13:00 Temperature 98.8 F Pulse Rate 52 L 57 L 59 L Respiratory Rate 17 17 17 Blood Pressure 116/62 127/60 143/71 H Pulse Oximetry 93 L 93 L 95 11/25/17 14:35 11/25/17 14:45 11/25/17 15:00 Temperature 97.6 F Pulse Rate 70 62 58 L Respiratory Rate 14 15 15 Blood Pressure 146/79 H 153/86 H 160/91 H Pulse Oximetry 97 11/25/17 15:15 11/25/17 15:30 11/25/17 16:00 Temperature 97.6 F 97.8 F Pulse Rate 58 L 53 L 57 L Respiratory Rate 15 15 20 Blood Pressure 149/83 H 155/85 H 155/73 H Pulse Oximetry 96 94 L 11/25/17 16:21 11/25/17 19:00 11/25/17 20:00 Temperature 98.8 F Pulse Rate 72 Respiratory Rate 19 Blood Pressure 145/73 H Pulse Oximetry 96 98 95 11/26/17 00:00 11/26/17 04:00 11/26/17 09:04 Temperature 97.8 F 97.5 F L 98.0 F Pulse Rate 78 78 63 Respiratory Rate 17 18 18 Blood Pressure 138/82 130/62 161/69 H Pulse Oximetry 96 97 94 L Intake & Output 11/25/17 11/26/17 11/26/17 18:59 06:59 18:59 Intake Total 1020 / 1020 1765 / 1765 Output Total 420 / 420 Balance 600 / 600 1765 / 1765 Weight 134.4 kg Intake: IV 520 / 520 1525 / 1525 KCl Inj 10 MEQ In 1/2 Normal 1005 / 1005 Saline Inj 1,000 ML @ 84 mls/hr IV.CONT .[id number] ERON Rx#: [id number] Vancomycin Inj 2,000 MG In NS 520 / 520 520 / 520 Inj 500 ML @ 250 mls/hr IV.SIG Q12H ERON Rx#:[id number] Oral 240 / 240 Anesthesia Amount 500 / 500 Output: Urine 400 / 400 Estimated Blood Loss Other: # Voids 4 7 nares packed heart reg lung cta abd s/nt ext right lower leg wrapped. drain noted. bloody fluid Results - Labs CBC & Chem 7: 11/26/17 04:20 11/26/17 04:20 Laboratory Results - last 24 hr 11/25/17 11/26/17 11/26/17 23:20 04:20 04:20 WBC 14.4 H D RBC 4.78 Hgb 13.8 Hct 40.7 MCV 85.1 MCH 29.0 MCHC 34.0 RDW 13.3 Plt Count 296 D MPV 8.3 Neut % (Auto) 88.7 H Lymph % (Auto) 5.9 L [place] % (Auto) 5.2 Eos % (Auto) 0.0 Baso % (Auto) 0.2 Neut # (Auto) 12.8 H Lymph # (Auto) 0.9 L [place] # (Auto) 0.8 Eos # (Auto) 0.0 Baso # (Auto) 0.0 WBC Differential . Differential Comment Auto diff final PT 10.9 INR 1.1 APTT 25.8 Sodium 139 Potassium 4.4 Chloride 102 Carbon Dioxide 30.9 Anion Gap 6 BUN 13 Creatinine 0.94 Estimated GFR 81 L Random Glucose 134 H Calcium 9.1 Microbiology 11/25/17 09:07 Tissue - Other Gram Stain - Final 11/25/17 09:07 Tissue - Other Gram Stain - Final 11/25/17 09:07 Tissue - Other Fungal Smear - Final No fungal elements seen 11/25/17 09:07 Tissue - Other Fungal Smear - Final No fungal elements seen 11/23/17 23:44 Wound - Leg Gram Stain - Final 11/23/17 23:44 Wound - Leg Wound Culture - Preliminary 11/23/17 22:58 Blood - Peripheral Aerobic Blood Culture - Preliminary No growth in 2 days 11/23/17 22:58 Blood - Peripheral Anaerobic Blood Culture - Preliminary No growth in 2 days 11/23/17 23:14 Blood - Peripheral Aerobic Blood Culture - Preliminary No growth in 2 days 11/23/17 23:14 Blood - Peripheral Anaerobic Blood Culture - Preliminary No growth in 2 days Assessment and Plan - Assessment (1) Cellulitis Code(s): L03.90 - Cellulitis, unspecified Status: Acute Plan: Right calf cellulitis and abscess - comgmt with Orthopedis, Dr. Penn - Patient is a 62 y/o male with hypertension who was sent to the ED for evaluation of ongoing right lower extremity cellulitis which apparently began in August 2017. Pt reports that he was bit by an insect behind his right knee. Patient was previously admitted in [place], [place] for 11 days and treated with multiple antibiotics. Pt reports that he was then discharged on amoxicillin. Pt then drove back to [place]. - He reported that his right calf remained swollen and this had increased swelling at his right calf for the last week. - Patient was seen at Dr. Fisher's office the Sunday prior to admission and started on oral amoxicillin and Bactrim. However, patient failed to improve and had worsening erythema of his right lower extremity particular at the posterior aspect. Patient underwent ultrasound (outpatient, 11/21/17) showing a 15 cm septated Skaggs's cyst. Patient reports that the cyst open spontaneously and drained a large amount of dark, blood tinged fluid. - Knee MRI (11/23/17) 1. Large crescent-shaped fluid collection in the posterior superficial soft tissues with surrounding enhancement indicating infection and abscess in the proper clinical setting. No evidence of osteomyelitis. 2. Medial meniscus tear with displaced fragment in the intercondylar notch. 3. 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 4. Small joint effusion and small Skaggs cyst. - Blood cultures (11/23) with NGTD - Wound culture (11/23) ngtd - (11/25/17) Pt underwent irrigation and debridement of right calf abscess with Dr. Fly Penn surgical cultures pending. - Pain control PRN - Vancomycin (11/23 - present) - SCD LLE for DVT prophylaxis - Supportive care cont current rx .await pending cx. Epistaxis on 11/25. - Pt taken to the OR by Dr. Ferreira - packing per ENT (1) Cellulitis Qualifiers: Site of cellulitis of extremity: lower extremity Laterality: right
--- NOTE | 2017-11-26 10:12 | P.PNOP ---
Subjective Interval history: POD 1 s/p I&D right posterior knee doing well. reports pain but controlled. out of bed on own Physical Exam Vital signs: Vital Signs 11/25/17 10:15 11/25/17 10:30 11/25/17 10:45 Temperature Pulse Rate 59 L 53 L 58 L Respiratory Rate 17 17 17 Blood Pressure 131/66 128/67 128/64 Pulse Oximetry 97 98 94 L 11/25/17 11:00 11/25/17 11:15 11/25/17 11:30 Temperature Pulse Rate 56 L 60 52 L Respiratory Rate 17 17 17 Blood Pressure 118/59 L 134/65 116/62 Pulse Oximetry 95 93 L 93 L 11/25/17 12:00 11/25/17 13:00 11/25/17 14:35 Temperature 98.8 F 97.6 F Pulse Rate 57 L 59 L 70 Respiratory Rate 17 17 14 Blood Pressure 127/60 143/71 H 146/79 H Pulse Oximetry 93 L 95 97 11/25/17 14:45 11/25/17 15:00 11/25/17 15:15 Temperature Pulse Rate 62 58 L 58 L Respiratory Rate 15 15 15 Blood Pressure 153/86 H 160/91 H 149/83 H Pulse Oximetry 11/25/17 15:30 11/25/17 16:00 11/25/17 16:21 Temperature 97.6 F 97.8 F Pulse Rate 53 L 57 L Respiratory Rate 15 20 Blood Pressure 155/85 H 155/73 H Pulse Oximetry 96 94 L 96 11/25/17 19:00 11/25/17 20:00 11/26/17 00:00 Temperature 98.8 F 97.8 F Pulse Rate 72 78 Respiratory Rate 19 17 Blood Pressure 145/73 H 138/82 Pulse Oximetry 98 95 96 11/26/17 04:00 11/26/17 09:04 Temperature 97.5 F L 98.0 F Pulse Rate 78 63 Respiratory Rate 18 18 Blood Pressure 130/62 161/69 H Pulse Oximetry 97 94 L Intake & Output 11/25/17 11/26/17 11/26/17 18:59 06:59 18:59 Intake Total 1020 / 1020 1765 / 1765 Output Total 420 / 420 Balance 600 / 600 1765 / 1765 Weight 134.4 kg Intake: IV 520 / 520 1525 / 1525 KCl Inj 10 MEQ In 1/2 Normal 1005 / 1005 Saline Inj 1,000 ML @ 84 mls/hr IV.CONT .[id number] ON LICENSE OF [facility] Rx#: [id number] Vancomycin Inj 2,000 MG In NS 520 / 520 520 / 520 Inj 500 ML @ 250 mls/hr IV.SIG Q12H ON LICENSE OF [facility] Rx#:[id number] Oral 240 / 240 Anesthesia Amount 500 / 500 Output: Urine 400 / 400 Estimated Blood Loss Other: # Voids 4 7 Narrative: RLE: dressings clean and dry. intact. nvi. +drain Results - Labs CBC & Chem 7: 11/26/17 04:20 11/26/17 04:20 Laboratory Results - last 24 hr 11/25/17 11/26/17 11/26/17 23:20 04:20 04:20 WBC 14.4 H D RBC 4.78 Hgb 13.8 Hct 40.7 MCV 85.1 MCH 29.0 MCHC 34.0 RDW 13.3 Plt Count 296 D MPV 8.3 Neut % (Auto) 88.7 H Lymph % (Auto) 5.9 L [place] % (Auto) 5.2 Eos % (Auto) 0.0 Baso % (Auto) 0.2 Neut # (Auto) 12.8 H Lymph # (Auto) 0.9 L [place] # (Auto) 0.8 Eos # (Auto) 0.0 Baso # (Auto) 0.0 WBC Differential . Differential Comment Auto diff final PT 10.9 INR 1.1 APTT 25.8 Sodium 139 Potassium 4.4 Chloride 102 Carbon Dioxide 30.9 Anion Gap 6 BUN 13 Creatinine 0.94 Estimated GFR 81 L Random Glucose 134 H Calcium 9.1 Microbiology 11/25/17 09:07 Tissue - Other Gram Stain - Final 11/25/17 09:07 Tissue - Other Gram Stain - Final 11/25/17 09:07 Tissue - Other Fungal Smear - Final No fungal elements seen 11/25/17 09:07 Tissue - Other Fungal Smear - Final No fungal elements seen 11/23/17 23:44 Wound - Leg Gram Stain - Final 11/23/17 23:44 Wound - Leg Wound Culture - Preliminary 11/23/17 22:58 Blood - Peripheral Aerobic Blood Culture - Preliminary No growth in 2 days 11/23/17 22:58 Blood - Peripheral Anaerobic Blood Culture - Preliminary No growth in 2 days 11/23/17 23:14 Blood - Peripheral Aerobic Blood Culture - Preliminary No growth in 2 days 11/23/17 23:14 Blood - Peripheral Anaerobic Blood Culture - Preliminary No growth in 2 days Assessment and Plan - Assessment and Plan 1) Right Calf abscess s/p I&D - POD 1 -WBAT -daily dressing changes POD 2 -maintain drain x 3 days -monitor cultures. neg so far -ID to follow and tailor Abx accordingly -plan for DC once cultures are finalized.
[2017-11-26] MEDS ORDERED: Pharmacy Ordered Lab Info OTHER ONE (20:45)
[2017-11-27] MEDS: Potassium Chloride Inj 10 MEQ in Sodium Chloride 0.45 % Inj 1,000 ML IV.CONT SCH (03:18)
--- NOTE | 2017-11-27 07:30 | P.PNOP ---
Subjective Interval history: POD 2 s/p I&D right posterior knee doing well. pain controlled. no changes Physical Exam Vital signs: Vital Signs 11/26/17 09:04 11/26/17 13:31 11/26/17 17:59 Temperature 98.0 F 97.9 F 97.9 F Pulse Rate 63 69 71 Respiratory Rate 18 18 18 Blood Pressure 161/69 H 137/65 149/67 H Pulse Oximetry 94 L 95 95 11/26/17 20:00 11/27/17 00:00 11/27/17 04:00 Temperature 97.9 F 97.4 F L 97.2 F L Pulse Rate 78 73 64 Respiratory Rate 20 20 20 Blood Pressure 153/73 H 144/78 H 158/77 H Pulse Oximetry 95 98 98 11/27/17 06:00 Temperature Pulse Rate Respiratory Rate 18 Blood Pressure Pulse Oximetry Intake & Output 11/26/17 11/27/17 11/27/17 18:59 06:59 18:59 Intake Total 2720 / 2720 640 / 640 Output Total 35 / 35 Balance 2720 / 2720 605 / 605 Weight 135.2 kg Intake: IV 1520 / 1520 520 / 520 KCl Inj 10 MEQ In 1/2 Normal 1000 / 1000 Saline Inj 1,000 ML @ 84 mls/hr IV.CONT .[id number] [facility] Rx#: [id number] Vancomycin Inj 2,000 MG In NS 520 / 520 520 / 520 Inj 500 ML @ 250 mls/hr IV.SIG Q12H [facility] Rx#:[id number] Oral 1200 / 1200 120 / 120 Output: Wound Drainage 35 / 35 # 2 Right Knee 35 / 35 Other: # Voids 7 5 Narrative: RLE: dressings clean and dry. itnact. NVI. +drain Results - Labs CBC & Chem 7: 11/26/17 04:20 11/26/17 04:20 Laboratory Results - last 24 hr 11/26/17 21:51 Vancomycin Trough 18.7 H Microbiology 11/25/17 09:07 Tissue - Other Gram Stain - Final 11/25/17 09:07 Tissue - Other Wound Culture - Preliminary No growth in 24 hours 11/25/17 09:07 Tissue - Other Gram Stain - Final 11/25/17 09:07 Tissue - Other Wound Culture - Preliminary No growth in 24 hours 11/23/17 22:58 Blood - Peripheral Aerobic Blood Culture - Preliminary No growth in 3 days 11/23/17 22:58 Blood - Peripheral Anaerobic Blood Culture - Preliminary No growth in 3 days 11/23/17 23:14 Blood - Peripheral Aerobic Blood Culture - Preliminary No growth in 3 days 11/23/17 23:14 Blood - Peripheral Anaerobic Blood Culture - Preliminary No growth in 3 days 11/25/17 09:07 Tissue - Other Fungal Smear - Final No fungal elements seen 11/25/17 09:07 Tissue - Other Fungal Smear - Final No fungal elements seen 11/23/17 23:44 Wound - Leg Gram Stain - Final 11/23/17 23:44 Wound - Leg Wound Culture - Preliminary Assessment and Plan - Assessment and Plan 1) Right Calf abscess s/p I&D - POD 2 -WBAT -daily dressing changes POD 2 -maintain drain x 3 days -monitor cultures. neg so far -ID to follow and tailor Abx accordingly -plan for DC once cultures are finalized.
--- NOTE | 2017-11-27 09:23 | P.PNIM ---
Subjective Interval history: pt having difficulty breathing with the nasal packing. Physical Exam Vital signs: Vital Signs 11/26/17 13:31 11/26/17 17:59 11/26/17 20:00 Temperature 97.9 F 97.9 F 97.9 F Pulse Rate 69 71 78 Respiratory Rate 18 18 20 Blood Pressure 137/65 149/67 H 153/73 H Pulse Oximetry 95 95 95 11/27/17 00:00 11/27/17 04:00 11/27/17 06:00 Temperature 97.4 F L 97.2 F L Pulse Rate 73 64 Respiratory Rate 20 20 18 Blood Pressure 144/78 H 158/77 H Pulse Oximetry 98 98 Intake & Output 11/26/17 11/27/17 11/27/17 18:59 06:59 18:59 Intake Total 2720 / 2720 640 / 640 Output Total 35 / 35 Balance 2720 / 2720 605 / 605 Weight 135.2 kg Intake: IV 1520 / 1520 520 / 520 KCl Inj 10 MEQ In 1/2 Normal 1000 / 1000 Saline Inj 1,000 ML @ 84 mls/hr IV.CONT .[id number] [facility] Rx#: [id number] Vancomycin Inj 2,000 MG In NS 520 / 520 520 / 520 Inj 500 ML @ 250 mls/hr IV.SIG Q12H [facility] Rx#:[id number] Oral 1200 / 1200 120 / 120 Output: Wound Drainage 35 / 35 # 2 Right Knee 35 / 35 Other: # Voids 7 5 1 nasal packing heart reg lung no wheeze/crackles abd s/nt ext right lower leg kenton wrapped with daphney drain Results - Labs CBC & Chem 7: 11/26/17 04:20 11/26/17 04:20 Laboratory Results - last 24 hr 11/26/17 21:51 Vancomycin Trough 18.7 H Microbiology 11/25/17 09:07 Tissue - Other Gram Stain - Final 11/25/17 09:07 Tissue - Other Wound Culture - Preliminary No growth in 24 hours 11/25/17 09:07 Tissue - Other Gram Stain - Final 11/25/17 09:07 Tissue - Other Wound Culture - Preliminary No growth in 24 hours 11/23/17 22:58 Blood - Peripheral Aerobic Blood Culture - Preliminary No growth in 3 days 11/23/17 22:58 Blood - Peripheral Anaerobic Blood Culture - Preliminary No growth in 3 days 11/23/17 23:14 Blood - Peripheral Aerobic Blood Culture - Preliminary No growth in 3 days 11/23/17 23:14 Blood - Peripheral Anaerobic Blood Culture - Preliminary No growth in 3 days 11/25/17 09:07 Tissue - Other Fungal Smear - Final No fungal elements seen 11/25/17 09:07 Tissue - Other Fungal Smear - Final No fungal elements seen 11/23/17 23:44 Wound - Leg Gram Stain - Final 11/23/17 23:44 Wound - Leg Wound Culture - Preliminary Assessment and Plan - Assessment (1) Cellulitis Code(s): L03.90 - Cellulitis, unspecified Status: Acute Plan: Right calf cellulitis and abscess - comgmt with Orthopedis, Dr. Penn - Patient is a 62 y/o male with hypertension who was sent to the ED for evaluation of ongoing right lower extremity cellulitis which apparently began in August 2017. Pt reports that he was bit by an insect behind his right knee. Patient was previously admitted in [place], [place] for 11 days and treated with multiple antibiotics. Pt reports that he was then discharged on amoxicillin. Pt then drove back to [place]. - He reported that his right calf remained swollen and this had increased swelling at his right calf for the last week. - Patient was seen at Dr. Fisher's office the Sunday prior to admission and started on oral amoxicillin and Bactrim. However, patient failed to improve and had worsening erythema of his right lower extremity particular at the posterior aspect. Patient underwent ultrasound (outpatient, 11/21/17) showing a 15 cm septated Skaggs's cyst. Patient reports that the cyst open spontaneously and drained a large amount of dark, blood tinged fluid. - Knee MRI (11/23/17) 1. Large crescent-shaped fluid collection in the posterior superficial soft tissues with surrounding enhancement indicating infection and abscess in the proper clinical setting. No evidence of osteomyelitis. 2. Medial meniscus tear with displaced fragment in the intercondylar notch. 3. 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 4. Small joint effusion and small Skaggs cyst. - Blood cultures (11/23) with NGTD - Wound culture (11/23) ngtd - (11/25/17) Pt underwent irrigation and debridement of right calf abscess with Dr. Fly Penn - Pain control PRN - Vancomycin (11/23 - present) - SCD LLE for DVT prophylaxis - Supportive care Pt was given multiple abx prior to admission. his surgical cx's are ngtd. Will get ID opinion on dc abx recommendations. ?clinda Epistaxis - Pt taken to the OR by Dr. Ferreira - packing per ENT discussed with ENT..plan for removal of nasal packing in AM. (1) Cellulitis Qualifiers: Site of cellulitis of extremity: lower extremity Laterality: right
[2017-11-27] MEDS: Senna/Docusate Sodium 8.6/50 MG Tablet PO SCH ×2 (09:27→20:20)
[2017-11-27] MEDS: Vancomycin Inj 2,000 MG in Sodium Chlor 0.9% Inj 500 ML IV.SIG SCH ×2 (09:27→20:20)
--- NOTE | 2017-11-27 23:11 | P.CONID ---
History of Present Illness Service: ID Consult date: 01/28/18 Requesting Physician: Felix Piedra Reason for Consult: calf abscess Primary Care Provider: Mirta Fisher Chief Complaint: cellulitis History of Present Illness: Pt is a poor historian 62 yo male apparently with months of swelling of R LE and episode of R calf infec tion treated conservatively with abx presented with 1 week of swelling redness and pain of R calf He was found to have a 11 cm abscess and went to OR sp ID by Dr Penn with VAC Clx P On vanco Review of Systems All other systems reviewed negative except as stated in HPI PMFSH - History History Provided By: Patient - Medical History Medical History: Medical History (Last Reviewed 01/24/18 @ 13:35 by Nathalie Hi MD) Hypertension Hyperthyroidism - Surgical History Surgical History: Surgical History (Last Reviewed 01/24/18 @ 13:35 by Nathalie Hi MD) Hx of left knee surgery - Family History Family History: Family History (Last Updated 01/24/18 @ 13:36 by Nathalie Hi MD) Other No pertinent family history - Social History I have reviewed the patient's Social History: Yes - Tobacco History Second Hand Smoke Exposure: No Tobacco Use In Past 30 Days: No Smoking Status: Former smoker Tobacco Type: Cigarettes - Alcohol History How Often Do You Have a Drink Containing Alcohol: Never - Substance Use History Substance History: No History of Abuse - Travel History Recent Travel in the [place] Within the Last 8 Weeks: No Recent Travel Out of the Country Within the Last 8 Weeks: No - Immunization History Tetanus Immunization: <5 Years Hx Influenza Vaccine This Season: No Medications and Allergies Active Medications: Active Medications Hydrocodone Bitart/Acetaminophen ([place] 5/325) 1 tab PO Q4H PRN PRN Reason: PAIN SCALE 1 TO 10 Last Admin: 11/27/17 22:14 Dose: 1 tab Al Hydroxide/Mg Hydroxide (Milk Of Magnesia Liq) 30 ml PO Q12H PRN PRN Reason: Mild Constipation Diphenhydramine HCl (Benadryl) 25 mg PO Q6H PRN PRN Reason: ITCHING Hydromorphone HCl (Dilaudid Pf Inj) 0.5 mg IV.PUSH Q6H PRN PRN Reason: PAIN SCALE 6 TO 10 Pharmacy Profile Note (Vancomycin Consult Pharmacy) 0 mls @ 0 mls/hr OTHER UNSCH [facility] Vancomycin HCl 2,000 mg/ (Sodium Chloride) 520 mls @ 250 mls/hr IV.SIG Q12H [facility] Last Admin: 11/27/17 20:20 Dose: 250 mls/hr Ondansetron HCl (Zofran Odt) 4 mg PO Q6H PRN PRN Reason: NAUSEA OR VOMITING Senna/Docusate Sodium (Britta-Colace) 1 tab PO BID [facility] Last Admin: 11/27/17 20:20 Dose: Not Given Sodium Chloride (Ns Flush) 2 ml IV.FLUSH BID [facility] Last Admin: 11/27/17 20:20 Dose: 2 ml Sodium Chloride (Ns Flush) 2 ml IV.FLUSH PRN PRN PRN Reason: FLUSH AFTER USING IV ACCESS Last Admin: 11/27/17 09:26 Dose: 2 ml Temazepam (Restoril) 15 mg PO HS PRN PRN Reason: INSOMNIA Allergies Allergy/AdvReac Type Severity Reaction Status Date / Time No Known Allergies Allergy Unverified 11/23/17 19:56 Home Medications Medication Instructions Recorded Confirmed Type lisinopril 10 mg PO DAILY 11/23/17 11/23/17 History metoprolol tartrate 100 mg PO DAILY 11/23/17 11/23/17 History Exam Vital signs: Vital Signs 11/27/17 00:00 11/27/17 04:00 11/27/17 06:00 Temperature 97.4 F L 97.2 F L Pulse Rate 73 64 Respiratory Rate 20 20 18 Blood Pressure 144/78 H 158/77 H Pulse Oximetry 98 98 11/27/17 08:00 11/27/17 12:00 11/27/17 16:00 Temperature 98.2 F 97.9 F 97.4 F L Pulse Rate 67 73 74 Respiratory Rate 17 18 18 Blood Pressure 157/67 H 124/58 L 150/69 H Pulse Oximetry 94 L 96 95 11/27/17 16:38 11/27/17 20:00 Temperature 97.7 F Pulse Rate 84 Respiratory Rate 16 18 Blood Pressure 138/64 Pulse Oximetry 93 L Intake & Output 11/27/17 11/27/17 11/28/17 06:59 18:59 06:59 Intake Total 640 / 640 1360 / 1360 Output Total 35 / 35 1020 / 1020 Balance 605 / 605 340 / 340 Weight 135.2 kg Intake: IV 520 / 520 520 / 520 Vancomycin Inj 2,000 MG In NS 520 / 520 520 / 520 Inj 500 ML @ 250 mls/hr IV.SIG Q12H [facility] Rx#:[id number] Oral 120 / 120 840 / 840 Output: Urine 1000 / 1000 Wound Drainage 35 / 35 20 / 20 # 2 Right Knee 35 / 35 20 / 20 Other: # Voids 5 3 # Bowel Movements 0 - Constitutional no acute distress - Routine HEENT Exam Head: Present: normocephalic Eye: Present: EOMI ENT: Present: mucous membranes moist, oropharynx clear Comments: epistaxix b/l nares packed - Routine Neck Exam Present: supple, full ROM - Routine Respiratory Exam Present: decreased breath sounds, CTA bilaterally - Routine Cardiovascular Exam Present: RRR, S1, S2 Comments: good cap refill - Routine Abdominal Exam Present: soft, normoactive bowel sounds Comments: no organomegaly no masses - Routine Extremities Exam Comments: no cyanosys clubbiung edema R foot with post op bulky dressing, VAC in place - Routine Skin Exam Present: intact, warm - Routine Neurological Exam Present: alert, oriented X3, CN II-XII intact, moving all extremities - Routine Psychiatric Exam Present: normal affect, normal thought process Results - Labs CBC & Chem 7: 11/26/17 04:20 11/28/17 03:15 Labs: Laboratory Results - last 24 hr 11/26/17 21:51 Vancomycin Trough 18.7 H Assessment and Plan - Plan R calf abscess vs infected hematoma s/p I+D cont vanco follow clx
[2017-11-28 05:05] LABS: Glomerular Filtration Rate Greater Than 89 mL/min (>89)
[2017-11-28] MEDS: Vancomycin Inj 2,000 MG in Sodium Chlor 0.9% Inj 500 ML IV.SIG SCH (08:28)
[2017-11-28] MEDS: Senna/Docusate Sodium 8.6/50 MG Tablet PO SCH (08:28)
--- NOTE | 2017-11-28 09:01 | P.PNOP ---
Subjective Interval history: POD 3 s/p I&D right calf doing well. pain controlled. no new complaints Physical Exam Vital signs: Vital Signs 11/27/17 12:00 11/27/17 16:00 11/27/17 16:38 Temperature 97.9 F 97.4 F L Pulse Rate 73 74 Respiratory Rate 18 18 16 Blood Pressure 124/58 L 150/69 H Pulse Oximetry 96 95 11/27/17 20:00 11/28/17 00:00 11/28/17 06:00 Temperature 97.7 F 97.3 F L 97.3 F L Pulse Rate 84 68 67 Respiratory Rate 18 18 18 Blood Pressure 138/64 150/86 H 175/82 H Pulse Oximetry 93 L 100 96 Intake & Output 11/27/17 11/28/17 11/28/17 18:59 06:59 18:59 Intake Total 1360 / 1360 1480 / 1480 Output Total 1020 / 1020 Balance 340 / 340 1480 / 1480 Weight 134.6 kg Intake: IV 520 / 520 520 / 520 Vancomycin Inj 2,000 MG In NS 520 / 520 520 / 520 Inj 500 ML @ 250 mls/hr IV.SIG Q12H [facility] Rx#:[id number] Oral 840 / 840 960 / 960 Output: Urine 1000 / 1000 Wound Drainage # 2 Right Knee Other: # Voids 3 6 # Bowel Movements 0 0 Narrative: RLE: dressings clean and dry. itnact. NVI. +drain Results - Labs CBC & Chem 7: 11/26/17 04:20 11/28/17 03:15 Laboratory Results - last 24 hr 11/28/17 03:15 Creatinine 0.86 Estimated GFR Greater than 89 Microbiology 11/25/17 09:07 Tissue - Other Acid Fast Bacilli Smear - Final No acid fast bacilli seen 11/25/17 09:07 Tissue - Other Acid Fast Bacilli Smear - Final No acid fast bacilli seen 11/25/17 09:07 Tissue - Other Gram Stain - Final 11/25/17 09:07 Tissue - Other Wound Culture - Preliminary No growth in 48 hours 11/25/17 09:07 Tissue - Other Gram Stain - Final 11/25/17 09:07 Tissue - Other Wound Culture - Preliminary No growth in 48 hours 11/23/17 22:58 Blood - Peripheral Aerobic Blood Culture - Preliminary No growth in 4 days 11/23/17 22:58 Blood - Peripheral Anaerobic Blood Culture - Preliminary No growth in 4 days 11/23/17 23:14 Blood - Peripheral Aerobic Blood Culture - Preliminary No growth in 4 days 11/23/17 23:14 Blood - Peripheral Anaerobic Blood Culture - Preliminary No growth in 4 days 11/23/17 23:44 Wound - Leg Gram Stain - Final 11/23/17 23:44 Wound - Leg Wound Culture - Final Rare growth normal skin onel No anaerobes isolated Assessment and Plan - Assessment and Plan 1) Right Calf abscess s/p I&D - POD 3 -WBAT -daily dressing changes with xeroform/4x4/EDA -DC drain today. -cultures negative -ID to follow and tailor Abx accordingly -ortho clear for DC home today -f/u with Isamar or JESSICA in 2 weeks for wound check
[2017-11-28 09:18] VITALS: RESP 16
--- NOTE | 2017-11-28 11:08 | P.DCO ---
- Physical Therapy Order: Evaluate and treat, Improve ambulation - Home Health Nursing Order: Medical education, Signs/symptoms of disease process, Medication education-adverse effect, Wound care and dressing changes, Nursing assessment with vital signs Instructions: Right Calf abscess s/p I&D - POD 3 -WBAT -daily dressing changes with xeroform/4x4/EDA -f/u with Isamar or JESSICA in 2 weeks for wound check - Certification I have seen patient Hai Elias on 11/28/17. My clinical findings support the need for the requested home health care services because: Limited ability to care for self I certify that my clinical findings support that this patient is homebound because: Unsteady gait/balance
--- NOTE | 2017-11-28 11:26 | P.PNIM ---
Subjective Interval history: pt on edge bed eating. minimal ooze from nares. light pink. Physical Exam Vital signs: Vital Signs 11/27/17 12:00 11/27/17 16:00 11/27/17 16:38 Temperature 97.9 F 97.4 F L Pulse Rate 73 74 Respiratory Rate 18 18 16 Blood Pressure 124/58 L 150/69 H Pulse Oximetry 96 95 11/27/17 20:00 11/28/17 00:00 11/28/17 06:00 Temperature 97.7 F 97.3 F L 97.3 F L Pulse Rate 84 68 67 Respiratory Rate 18 18 18 Blood Pressure 138/64 150/86 H 175/82 H Pulse Oximetry 93 L 100 96 11/28/17 08:00 Temperature 97.1 F L Pulse Rate 79 Respiratory Rate 16 Blood Pressure 165/83 H Pulse Oximetry 95 Intake & Output 11/27/17 11/28/17 11/28/17 18:59 06:59 18:59 Intake Total 1360 / 1360 1480 / 1480 Output Total 1020 / 1020 Balance 340 / 340 1480 / 1480 Weight 134.6 kg Intake: IV 520 / 520 520 / 520 Vancomycin Inj 2,000 MG In NS 520 / 520 520 / 520 Inj 500 ML @ 250 mls/hr IV.SIG Q12H [facility] Rx#:[id number] Oral 840 / 840 960 / 960 Output: Urine 1000 / 1000 Wound Drainage # 2 Right Knee Other: # Voids 3 6 # Bowel Movements 0 0 mild light pinkish ooze from nares heart reg lung cta abd s/nt ext right leg kenton wrapped with drain. Results - Labs CBC & Chem 7: 11/26/17 04:20 11/28/17 03:15 Laboratory Results - last 24 hr 11/28/17 03:15 Creatinine 0.86 Estimated GFR Greater than 89 Microbiology 11/23/17 22:58 Blood - Peripheral Aerobic Blood Culture - Final No growth in 5 days 11/23/17 22:58 Blood - Peripheral Anaerobic Blood Culture - Final No growth in 5 days 11/23/17 23:14 Blood - Peripheral Aerobic Blood Culture - Final No growth in 5 days 11/23/17 23:14 Blood - Peripheral Anaerobic Blood Culture - Final No growth in 5 days 11/25/17 09:07 Tissue - Other Gram Stain - Final 11/25/17 09:07 Tissue - Other Wound Culture - Final No growth in 72 hours (aerobically and anaerobically ) 11/25/17 09:07 Tissue - Other Gram Stain - Final 11/25/17 09:07 Tissue - Other Wound Culture - Final No growth in 72 hours (aerobically and anaerobically ) 11/25/17 09:07 Tissue - Other Acid Fast Bacilli Smear - Final No acid fast bacilli seen 11/25/17 09:07 Tissue - Other Acid Fast Bacilli Smear - Final No acid fast bacilli seen 11/23/17 23:44 Wound - Leg Gram Stain - Final 11/23/17 23:44 Wound - Leg Wound Culture - Final Rare growth normal skin onel No anaerobes isolated Assessment and Plan - Assessment (1) Cellulitis Code(s): L03.90 - Cellulitis, unspecified Status: Acute Plan: Right calf cellulitis and abscess - comgmt with Orthopedis, Dr. Penn - Patient is a 62 y/o male with hypertension who was sent to the ED for evaluation of ongoing right lower extremity cellulitis which apparently began in August 2017. Pt reports that he was bit by an insect behind his right knee. Patient was previously admitted in [place], [place] for 11 days and treated with multiple antibiotics. Pt reports that he was then discharged on amoxicillin. Pt then drove back to [place]. - He reported that his right calf remained swollen and this had increased swelling at his right calf for the last week. - Patient was seen at Dr. Fisher's office the Sunday prior to admission and started on oral amoxicillin and Bactrim. However, patient failed to improve and had worsening erythema of his right lower extremity particular at the posterior aspect. Patient underwent ultrasound (outpatient, 11/21/17) showing a 15 cm septated Skaggs's cyst. Patient reports that the cyst open spontaneously and drained a large amount of dark, blood tinged fluid. - Knee MRI (11/23/17) 1. Large crescent-shaped fluid collection in the posterior superficial soft tissues with surrounding enhancement indicating infection and abscess in the proper clinical setting. No evidence of osteomyelitis. 2. Medial meniscus tear with displaced fragment in the intercondylar notch. 3. 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 4. Small joint effusion and small Skaggs cyst. - Blood cultures (11/23) with NGTD - Wound culture (11/23) ngtd - (11/25/17) Pt underwent irrigation and debridement of right calf abscess with Dr. Fly Penn - Pain control PRN - Vancomycin (11/23 - present) - SCD LLE for DVT prophylaxis - Supportive care Pt was given multiple abx prior to admission. his surgical cx's are ngtd. ID opinion for dc abx today Await drain removal from right leg. HHC and wound care order written ENT removed a portion of the packing and pt will f/u office dc home later today possible. Epistaxis - Pt taken to the OR by Dr. Ferreira - packing per ENT [employer] search resulted in "no matches":. 3 days supply norco given. (1) Cellulitis Qualifiers: Site of cellulitis of extremity: lower extremity Laterality: right
[2017-11-28 17:04] VITALS: BP 142/84; PULSE 79; TEMP 97.7; O2SAT 95
--- NOTE | 2017-11-28 17:05 | P.PNID ---
Subjective Remarks: cultures are negative @ 72 hrs G stain cw old blood no fever Antibiotics: vancomycin Allergies/Adverse Reactions: Allergies No Known Allergies Allergy (Unverified 11/23/17 19:56) Objective Vital Signs 11/27/17 20:00 11/28/17 00:00 11/28/17 06:00 Temperature 97.7 F 97.3 F L 97.3 F L Pulse Rate 84 68 67 Respiratory Rate 18 18 18 Blood Pressure 138/64 150/86 H 175/82 H Pulse Oximetry 93 L 100 96 11/28/17 08:00 11/28/17 12:00 Temperature 97.1 F L 97.4 F L Pulse Rate 79 92 H Respiratory Rate 16 16 Blood Pressure 165/83 H 123/80 Pulse Oximetry 95 96 Intake & Output 11/27/17 11/28/17 11/28/17 18:59 06:59 18:59 Intake Total 1360 / 1360 1480 / 1480 Output Total 1020 / 1020 Balance 340 / 340 1480 / 1480 Weight 134.6 kg Intake: IV 520 / 520 520 / 520 Vancomycin Inj 2,000 MG In NS 520 / 520 520 / 520 Inj 500 ML @ 250 mls/hr IV.SIG Q12H [facility] Rx#:[id number] Oral 840 / 840 960 / 960 Output: Urine 1000 / 1000 Wound Drainage # 2 Right Knee Other: # Voids 3 6 # Bowel Movements 0 0 11/23/17 22:58 Blood - Peripheral Aerobic Blood Culture - Final No growth in 5 days 11/23/17 22:58 Blood - Peripheral Anaerobic Blood Culture - Final No growth in 5 days 11/23/17 23:14 Blood - Peripheral Aerobic Blood Culture - Final No growth in 5 days 11/23/17 23:14 Blood - Peripheral Anaerobic Blood Culture - Final No growth in 5 days 11/25/17 09:07 Tissue - Other Gram Stain - Final 11/25/17 09:07 Tissue - Other Wound Culture - Final No growth in 72 hours (aerobically and anaerobically ) 11/25/17 09:07 Tissue - Other Gram Stain - Final 11/25/17 09:07 Tissue - Other Wound Culture - Final No growth in 72 hours (aerobically and anaerobically ) 11/25/17 09:07 Tissue - Other Acid Fast Bacilli Smear - Final No acid fast bacilli seen 11/25/17 09:07 Tissue - Other Mycobacterial Culture - Pending 11/25/17 09:07 Tissue - Other Acid Fast Bacilli Smear - Final No acid fast bacilli seen 11/25/17 09:07 Tissue - Other Mycobacterial Culture - Pending 11/23/17 23:44 Wound - Leg Gram Stain - Final 11/23/17 23:44 Wound - Leg Wound Culture - Final Rare growth normal skin onel No anaerobes isolated 11/25/17 09:07 Tissue - Other Fungal Smear - Final No fungal elements seen 11/25/17 09:07 Tissue - Other Fungal Culture - Pending 11/25/17 09:07 Tissue - Other Fungal Smear - Final No fungal elements seen 11/25/17 09:07 Tissue - Other Fungal Culture - Pending Lab - Chemistry Results 11/26/17 11/28/17 04:20 03:15 Creatinine 0.86 Estimated GFR Greater than 89 Vit D 1,25-Dihydroxy 62 Imaging: ITS Impressions Chest X-Ray 11/23/17 00:00 CONCLUSION: No acute cardiopulmonary disease identified. Knee MRI 11/23/17 21:17 CONCLUSION: 1. Large crescent-shaped fluid collection in the posterior superficial soft tissues with surrounding enhancement indicating infection and abscess in the proper clinical setting. No evidence of osteomyelitis. 2. Medial meniscus tear with displaced fragment in the intercondylar notch. 3. 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 4. Small joint effusion and small Skaggs cyst. Physical Exam: GENERAL: NAD SKIN: Warm and dry. no rash CARDIOVASCULAR: Regular rate and rhythm without murmurs, gallops, or rubs. RESPIRATORY: Breath sounds equal bilaterally. No accessory muscle use. GASTROINTESTINAL: Abdomen soft, non-tender, nondistended. MUSCULOSKELETAL: No cyanosis, or edema. R calf with minimal induration N erythema Mild edema BACK: Nontender without obvious deformity. No CVA tenderness. Assessment and Plan - Plan R calf abscess vs infected hematoma sp partial treatment with negative cultures dc vanco cont amoxicillin + bactrim @ home x 7 more days OK to dc home darren Piedra
--- NOTE | 2017-11-29 15:52 | MP ---
cc: Chip Ferreira MD DATE OF OPERATION: 11/25/2017 DATE OF SURGERY: 11/25/2017 SURGEON: Chip Ferreira MD PREOPERATIVE DIAGNOSIS: Bilateral epistaxis. POSTOPERATIVE DIAGNOSIS: Bilateral epistaxis. OPERATION PERFORMED: 1. Septoplasty. 2. Bilateral endoscopic control of epistaxis. INDICATIONS: Documented in the inpatient consultation of 11/25/2017. DESCRIPTION OF OPERATION: The patient was taken to OR #8 and placed in the supine position. Following induction of general anesthesia and intubation, the patient was prepped and draped for surgery. The Rapid Rhino balloon in the left nasal vestibule was removed and the nose was evacuated using a #10 suction. It was immediately packed with bilateral cotton pledgets saturated in oxymetazoline which remained in place for a period of 3 minutes, and then were removed. The nose was examined endoscopically. There were 2 sites of bleeding noted, one on the medial surface of the left middle turbinate a second one posterior in the right nasal vault. This was obscured by a large bone spur on the right septum. The packing was replaced into the depths of the nasal vault and a septoplasty was undertaken. This was completed in the usual fashion with removal of a 2 x 2 cm segment of the quadrangular cartilage and all of the septal bone, including the large bone spur. The incision was closed with a running suture of 4-0 chromic and the mucosal layers of the septum were approximated to each other with a quilting stitch of 4-0 plain gut. With the nasal vault fully available, it was then again examined under endoscopic visualization. The bleeding site on the medial surface of the left middle turbinate was cauterized using suction Bovie at 35 atkinson and the posterior septum on the right was cauterized using the same technique. Additional slow site of dripping blood was in the posterior left nasal vault up high, behind the superior turbinate. The site could not be distinctly identified and this area was then packed with a Gelfoam pledget saturated in 20,000 units of topical thrombin. The superior nasal vault bilaterally was then filled with the same packing material. The inferior nasal vaults were filled with 5.5 cm Rapid Rhino packs inflated with 5 mL of air. The procedure was then terminated, and the patient was reversed from anesthesia and taken to recovery in good condition. No complications. Blood loss was 200 mL. MD ADRIEL Douglass/GALO , 03:37 PM , 03:45 PM
--- NOTE | 2017-11-29 16:02 | MB ---
cc: Chip Ferreira MD DATE: 11/25/2017 REASON FOR ENT CONSULTATION: Bilateral epistaxis. REQUESTING PHYSICIAN: Dr. Walker. HISTORY OF PRESENT ILLNESS: Hai Elias is a 62-year-old man who underwent surgery for an infected Skaggs's cyst of the right knee on the morning of 11/25/2017. His anesthesiologist, Dr. Walker, reports that following completion of that procedure and during emergence and extubation from anesthesia, he began bleeding briskly from both sides of his nose, left much greater than right. Attempt was made to pack the nose with gauze moistened with phenylephrine; however, this was having no impact on his bleeding and so ENT was consulted. He was seen in the recovery room, bleeding briskly from the left side of his nose. A 7.5 cm Rapid Rhino pack was then placed into the left side of the nose and inflated with 7 mL of air; however, this had no impact on his bleeding. It did slow the opposite side down and he was bleeding from his mouth and from his nose. He was elected to then be returned to the operating room for control of bleeding under anesthesia. The patient reports he had a history of minor nosebleeds but never one as severe as this in the past. ASSESSMENT Epistaxis. PLAN: Return to operating room for control of bleeding under anesthesia. Chip Ferreira MD [facility] , 03:40 PM , 03:45 PM
[2017-11-30] MEDS ORDERED: Pharmacy Ordered Lab Info OTHER ONE (08:45)
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
== END 2017-11-28 18:21 | disposition home health service (06) ==
LOC: NEPD 14:22 → NEDA 21:21 → N04 11-24 00:18
PROVIDERS: ADMIT Hospitalist; ATTEND Hospitalist